=== PATIENT | female | born 1975 | race Asian ===

== ENCOUNTER 2025-07-12 20:29 | Emergency (ER) | payer SELFPAY ==
[2025-07-12] VITALS (12 sets, daily range): BP systolic 132–184; BP diastolic 73–98; PULSE 72–102; RESP 14–30; TEMP 37.1; O2SAT 98–100; BMI 37.3
--- NOTE | 2025-07-12 21:12 | DI.RAD.S_ITS ---
PROCEDURE: XR CHEST 1V INDICATIONS: Chest Pain TECHNIQUE: One view of the chest was acquired. COMPARISON: None. FINDINGS: Surgical changes and devices: None. Lungs and pleura: Lungs are clear. No pleural effusions or pneumothorax. Mediastinum: Mediastinal contours appear normal. Heart size is normal. Bones and chest wall: No suspicious bony lesions. Overlying soft tissues appear unremarkable. IMPRESSION: No acute cardiopulmonary abnormality is seen. Dictated by: Jair Linares M.D. on 07/12/2025 at 21:27 Approved by: Jair Linares M.D. on 07/12/2025 at 21:27
--- NOTE | 2025-07-12 21:12 | EKG_ITS ---
[address] [address] Test Date: 2025-07-12 Pat Name: Ena Dowell Department: [facility] Room: Gender: Female [employer]: : 1975 Requested By: Order Number: [id number] Reading MD: Steven Li Measurements Intervals Kimberly Rate: 84 P: 44 DE: 162 QRS: 64 QRSD: 92 T: 49 QT: 378 QTc: 446 Interpretive Statements Normal sinus rhythm Possible Anterior infarct , age undetermined Electronically Signed On 07-13-2025 17:26:42 PST by Steven Li
--- NOTE | 2025-07-12 21:16 | PC.NURSE ---
Pt roomed to ER6
[2025-07-12 21:20] LABS: Add Manual Diff / Slide Review NO; Hematocrit 40.2 % (36-46); Hemoglobin 13.7 g/dL (12.0-16.0); Lymphocytes Absolute Auto 1400 /uL (1100-4500); Mean Corpuscular HGB Conc 34.2 % (30-36); Mean Corpuscular Hemoglobin 27.3 PG (26-34); Mean Corpuscular Volume 79.9 fL (80-100); Platelet Count 238 X10^3/uL (150-400)
[2025-07-12 21:21] LABS: INR 0.9 (0.9-1.3); Prothrombin Time 10.3 SECONDS (9.4-12.5)
[2025-07-12 21:24] LABS: PTT Partial Thromboplastin Tim 30 SECONDS (25.1-36.5)
[2025-07-12 21:25] LABS: Alanine Aminotransferase 32 IU/L (<35); Albumin 4.5 g/dL (3.5-5.0); Albumin Globulin Ratio 1.3 (1.0-2.8); Alkaline Phosphatase 59 U/L (38-126); Blood Urea Nitrogen 16 mg/dL (7-17); Calcium 8.6 mg/dL (8.4-10.2); Carbon Dioxide 24 mmol/L (22-32); Chloride 88 mmol/L (98-107); Creatine Kinase 567 U/L (30-135); Estimated Glomerular Filt Rate > 60 mL/min (>60); Globulin 3.4 g/dL (1.7-4.1); Glucose 146 mg/dL (70-99); HEMOLYSIS 15 (0-50); Lipase 104 U/L (23-300); Magnesium 1.2 mg/dL (1.6-2.3); Potassium 3.9 mmol/L (3.4-5.1); Sodium 122 mmol/L (137-145); Total Protein 7.9 g/dL (6.3-8.2)
[2025-07-12 21:36] LABS: NT-proBNP (BNP-Adult 18+) 37 pg/mL (<125); Troponin I < 0.012 ng/mL (0.01-0.034)
[2025-07-12] MEDS: ASPIRIN 81 MG CHEW TAB 324 MG PO (21:44)
[2025-07-12] MEDS: MAGNESIUM SULFATE 2 GM/50 ML PIGGYBACK IV (22:29)
[2025-07-12] MEDS: SODIUM CHLORIDE 0.9% 1,000 ML 500 ML IV (22:33)
--- NOTE | 2025-07-12 23:04 | ED.GENADULT ---
HPI - General Adult General Chief complaint: Dizziness Stated complaint: headache/dizzy rt amr numb/ chest pain Time Seen by Provider: 07/12/25 21:14 Source: patient and family Mode of arrival: Ambulatory History of Present Illness HPI narrative: 50-year-old female with 2 days duration of generalized weakness with some dizziness, had recent loose stools, no black or red stools. Feels a bit faint and dizzy when she tries to stand up. She had some headache that seems to have improved. He had bilateral hand numbness and weakness. No focal weakness to face arm or leg. No focal numbness to face arm or leg. Patient History Social History Smoking Status: Never smoker Smoking Status: Never smoker Exam Narrative Exam Narrative: GENERAL: Well-developed patient, in mild distress. HEAD: Atraumatic. Normocephalic. EYES: Pupils equal round and reactive. Extraocular motions intact. No scleral icterus. No injection or drainage. ENT: Nose without bleeding, purulent drainage. Throat without erythema, tonsillar hypertrophy or exudate. Airway patent. NECK: Trachea midline. Non tender CARDIOVASCULAR: Regular rate and rhythm without murmurs, gallops, or rubs. RESPIRATORY: Clear to auscultation. Breath sounds equal bilaterally. No wheezes, rales, or rhonchi. GASTROINTESTINAL: Abdomen soft, non-tender, nondistended. EXTREMITIES: No edema or joint tenderness. BACK: Nontender without deformity or crepitance. No flank tenderness. NEURO: AOx3. Motor functions grossly nonfocal. SKIN: No rash or erythema of visible areas Initial Vital Signs Initial Vital Signs: Vital Signs Temperature 98.7 F 07/12/25 20:34 Pulse Rate 102 H 07/12/25 20:34 Respiratory Rate 20 07/12/25 20:34 Blood Pressure 184/98 H 07/12/25 20:34 Pulse Oximetry 98 07/12/25 20:34 Oxygen Delivery Method Room Air 07/12/25 20:34 Course Orders Ordered: ED Orders 07/12/25 23:44 BMP [Basic Metabolic Panel] Stat Troponin I Stat Discontinued Medications Aspirin (Aspirin 81 Mg Chew Tab) 324 mg PO NOW ONE Stop: 07/12/25 21:13 Last Admin: 07/12/25 21:44 Dose: 324 mg Documented By: SH Sodium Chloride (Normal Saline 0.9%) 1,000 mls @ 500 mls/hr IV BOLUS ONE Stop: 07/13/25 00:19 Last Infusion: 07/13/25 00:07 Dose: 500 mls/hr Documented By: Admin: 07/12/25 22:33 Dose: 500 mls/hr Documented By: JOSSELYN Magnesium Sulfate (Magnesium Sulfate) 2 gm in 50 mls @ 150 mls/hr IV NOW ONE Stop: 07/12/25 22:42 Last Infusion: 07/13/25 00:07 Dose: Infused Documented By: JOSSELYN Co-signed By: FELIPE Admin: 07/12/25 22:29 Dose: 150 mls/hr Documented By: JOSSELYN Co-signed By: BERNARDA Vital Signs Vital signs: Vital Signs - 8 hr 07/13/25 00:00 07/13/25 00:44 Temperature 97.9 F Pulse Rate 71 Respiratory Rate 17 Pulse Oximetry 100 Oxygen Delivery Method Room Air Medical Decision Making Lab Data Lab results reviewed: Yes I reviewed the patient's lab results. Lab results narrative: White blood cell count 6900, hemoglobin 13.7, platelets adequate. Glucose 146. Normal renal function, serum CO2, serum potassium. Sodium 122 low. Magnesium 1.2 low. AST mild elevation, other liver functions normal. Lipase normal. CPK 567 mild elevation. Initial troponin negative/unmeasurable. BNP 37 not elevated. 07/12/25 20:55 07/12/25 23:44 Labs: Lab Results 07/12/25 07/12/25 Range/Units 20:55 23:44 WBC 6.9 (4.5-11.0) X10^3/uL RBC 5.03 (4.0-5.2) X10^6/uL Hgb 13.7 (12.0-16.0) g/dL Hct 40.2 (36-46) % MCV 79.9 L (80-100) fL MCH 27.3 (26-34) PG MCHC 34.2 (30-36) % RDW 12.7 (11.6-14.8) % Plt Count 238 (150-400) X10^3/uL Neut % (Auto) 71.6 (50-75) % Lymph % (Auto) 20.2 L (25-40) % Raw[place] % (Auto) 7.0 (3-14) % Eos % (Auto) 0.7 L (2-4) % Baso % (Auto) 0.5 (0-2) % Neut # (Auto) 4900 (5207-0934) /uL Lymph # (Auto) 1400 (8017-1305) /uL [place] # (Auto) 500 (0-900) /uL Eos # (Auto) 0 (0-450) /uL Baso # (Auto) 0 (0-100) /uL PT 10.3 (9.4-12.5) SECONDS INR 0.9 (0.9-1.3) APTT 30 (25.1-36.5) SECONDS Sodium 122 L 124 L (137-145) mmol/L Potassium 3.9 4.3 (3.4-5.1) mmol/L Chloride 88 L 91 L (98-107) mmol/L Carbon Dioxide 24 24 (22-32) mmol/L BUN 16 15 (7-17) mg/dL Creatinine 0.97 0.93 (0.52-1.04) mg/dL Estimated GFR > 60 > 60 (>60) mL/min BUN/Creatinine Ratio 16.5 16.1 (6-22) Glucose 146 H 149 H (70-99) mg/dL Calcium 8.6 8.1 L (8.4-10.2) mg/dL Magnesium 1.2 L (1.6-2.3) mg/dL Total Bilirubin 0.6 (0.2-1.3) mg/dL AST 48 H (14-36) IU/L ALT 32 (<35) IU/L Alkaline Phosphatase 59 (38-126) U/L Total Creatine Kinase 567 H (30-135) U/L Troponin I < 0.012 < 0.012 (0.01-0.034) ng/mL NT-Pro-B Natriuret Pep 37 (<125) pg/mL Total Protein 7.9 (6.3-8.2) g/dL Albumin 4.5 (3.5-5.0) g/dL Globulin 3.4 (1.7-4.1) g/dL Albumin/Globulin Ratio 1.3 (1.0-2.8) Lipase 104 (23-300) U/L Imaging Data Chest x-ray: Radiologist's Impression: [address] [address] XRay Report Signed Patient: Ena Dowell MR#: [id number] : 1975 Acct:[id number] Age/Sex: 50 / F Date of Service: 07/12/25 Loc: ED Accession Number: [id number] Procedure: XR chest 1V Ordering Provider: Cisco Ford MD PROCEDURE: XR CHEST 1V INDICATIONS: Chest Pain TECHNIQUE: One view of the chest was acquired. COMPARISON: None. FINDINGS: Surgical changes and devices: None. Lungs and pleura: Lungs are clear. No pleural effusions or pneumothorax. Mediastinum: Mediastinal contours appear normal. Heart size is normal. Bones and chest wall: No suspicious bony lesions. Overlying soft tissues appear unremarkable. IMPRESSION: No acute cardiopulmonary abnormality is seen. Dictated by: Jair Linares M.D. on 07/12/2025 at 21:27 Approved by: Jair Linares M.D. on 07/12/2025 at 21:27 ECG Data Interpretation: 2151, normal sinus rhythm with rate of 84, no obvious ST segment elevation or depression changes. CT 162, QRS 92, QTC 446. MDM Narrative Medical decision making narrative: 50-year-old female with recent diarrheal illness, no black or red stools, afebrile, sirs screen negative, with generalized weakness and some hand numbness bilaterally. No focal weakness or numbness symptoms. I am headache prior that seems to be improved. Labs pending. Stool studies if specimen received by lab. EKG sinus rhythm without obvious ischemic changes. Chest x-ray, no acute changes. See radiology report. Lab data: White blood cell count 6900, hemoglobin 13.7, platelets adequate. Glucose 146. Normal renal function, serum CO2, serum potassium. Sodium 122 low. Magnesium 1.2 low. AST mild elevation, other liver functions normal. Lipase normal. CPK 567 mild elevation. Initial troponin negative/unmeasurable. BNP 37 not elevated. Low-sodium noted, IV normal saline 500 cc bolus given, IV magnesium repletion given for low level as well. Repeat BNP shows modest improvement sodium 124. Further evaluation as an outpatient. Recent diarrhea noted. Advised oral fluid rehydration with electrolyte containing products. Recheck sodium advised with the regular PCP on Thursday after the holiday weekend. Home with family. Return precautions discussed. Discharge Plan Departure Patient Disposition: Home Clinical Impression: Hyponatremia, Hypomagnesemia, Diarrhea, Dizziness, Generalized weakness Activity Restrictions/Additional Instructions: Dizziness with tingling hands, recent diarrhea, with some generalized weakness. Recent diarrhea. Screening labs remarkable for low sodium which seems to be new, initially 122, IV fluids given, repeat improved a little bit to 124. Magnesium was also low at 1.2, IV magnesium was given. EKG and serial blood tests not suggestive of any cardiac heart attack or other problems at this time. Consider further follow up as an outpatient, you might have lost electrolytes due to your diarrhea. Consider recheck of your sodium level of the blood and your magnesium level of the blood in follow up with your regular doctor next week after the holiday weekend. Please try to avoid drinking plain water, that lacks sodium and electrolytes. Consider drinking Powerade or Gatorade or similar electrolyte containing rehydration solution. We did consider ordering stool specimen for lab testing, but no specimen obtained for testing while in the emergency department. Recheck with your regular doctor this next week. Return to this/nearest emergency department for any change worsening symptoms or concerns prior. Stand Alone Forms: Patient Portal/API
--- NOTE | 2025-07-12 23:55 | PC.NURSE ---
Pt notified that stool sample is needed
[2025-07-13] VITALS: PULSE 71; RESP 17; O2SAT 100
[2025-07-13] LABS: Blood Urea Nitrogen 15 mg/dL (7-17); Calcium 8.1 mg/dL (8.4-10.2); Carbon Dioxide 24 mmol/L (22-32); Chloride 91 mmol/L (98-107); Estimated Glomerular Filt Rate > 60 mL/min (>60); Glucose 149 mg/dL (70-99); HEMOLYSIS 26 (0-50); Potassium 4.3 mmol/L (3.4-5.1); Sodium 124 mmol/L (137-145)
[2025-07-13 00:13] LABS: Troponin I < 0.012 ng/mL (0.01-0.034)
[2025-07-13 00:44] VITALS: TEMP 36.6
== END 2025-07-13 00:54 | disposition home or self-care (01) ==
PROVIDERS: Emergency Provider Emergency Medicine
DX: E87.1 Hypo-osmolality and hyponatremia (principal); E83.42 Hypomagnesemia; R19.7 Diarrhea, unspecified; R53.1 Weakness; R42 Dizziness and giddiness; R51.9 Headache, unspecified; R20.2 Paresthesia of skin
CPT/HCPCS: 36415; 71045; 80048; 80053; 82550; 83690; 83735; 83880; 84484; 85025; 85610; 85730; 93005; 96365; 96366; 99284; J3475; J7040